=== PATIENT | male | born 1990 | race Caucasian/White ===

== ENCOUNTER 2016-04-08 12:31 | Emergency (ER) | payer OTHER ==
--- NOTE | 2016-04-08 13:57 | UC ---
Throat Pain/Nasal Aris HPI - HPI Summary HPI Summary: complaint of sore throat that started approx 1.5 days ago fever yesterday highest 103.7 today fever again 101.4 took some tylenol with some relief intermittent headaches slight cough, slightly runny nose difficult to swallow today no use of albuterol inhaler during this illness - History of Current Complaint Stated Complaint: FEVER AND SORE THROAT Hx Obtained From: Patient - Allergies/Home Medications Allergies/Adverse Reactions: Allergies Allergy/AdvReac Type Severity Reaction Status Date / Time Bee Venom Allergy Severe Swelling Verified 04/08/16 13:58 Of Face,Lips,& Throat Penicillins Allergy Unknown Unknown Verified 04/08/16 13:58 Reaction Details Sulfa Antibiotics Allergy Unknown Unknown Verified 04/08/16 13:58 Reaction Details Home Medications: Home Medications Acetaminophen TAB* [Tylenol TAB*] 1,000 mg PO ONCE PRN 04/08/16 [History Confirmed 04/08/16] Gabapentin CAP(*) [Neurontin 300 CAP(*)] 300 mg PO TID 04/08/16 [History Confirmed 04/08/16] cloNIDine TAB* [Catapres TAB*] 0.1 mg PO DAILY 04/08/16 [History Confirmed 04/08] traZODone TAB* [Desyrel TAB*] 50 mg PO BEDTIME 04/08/16 [History Confirmed 04/08] PMH/Surg Hx/FS Hx/Imm Hx Previously Healthy: Yes Endocrine History Of: Denies: Diabetes Respiratory History Of: Reports: Asthma - Surgical History Surgical History: Yes Surgery Procedure, Year, and Place: jaw wired 2013 - Family History Known Family History: Positive: Hypertension - mother, Diabetes - mother Negative: Cardiac Disease - Social History Occupation: Employed Full-time Lives: With Family Alcohol Use: Occasionally Substance Use Type: Marijuana Smoking Status (MU): Current Every Day Smoker Amount Used/How Often: 5-6 cigs daily Cessation Counseling: Patient Advised to Stop Review of Systems Constitutional: Fever Skin: Negative ENT: Sore Throat Respiratory: Cough Cardiovascular: Negative Gastrointestinal: Negative Genitourinary: Negative Motor: Negative Neurovascular: Negative Musculoskeletal: Negative Neurological: Negative Psychological: Negative All Other Systems Reviewed And Are Negative: Yes Physical Exam Triage Information Reviewed: Yes Appearance: No Pain Distress, Well-Nourished, Obese Vital Signs Reviewed: Yes Eyes: Positive: Conjunctiva Clear ENT: Positive: Pharyngeal erythema, Nasal congestion, Nasal drainage, TMs normal , Tonsillar swelling, Tonsillar exudate. Negative: TM red Neck: Positive: No Lymphadenopathy Respiratory: Positive: Lungs clear, Normal breath sounds, No respiratory distress Cardiovascular: Positive: RRR, No Murmur Abdomen Description: Positive: Nontender, Soft Bowel Sounds: Positive: Present Musculoskeletal: Positive: No Edema Neurological: Positive: Alert Psychological Exam: Normal Skin Exam: Normal Throat Pain/Nasal Course/Dx - Differential Dx/Diagnosis Differential Diagnosis/HQI/PQRI: Pharyngitis, Tonsillitis, URI Provider Diagnoses: strep throat Discharge - Discharge Plan Condition: Stable Disposition: HOME Prescriptions: Clarithromycin TAB* [Biaxin TAB*] 250 mg PO BID #20 tab Patient Education Materials: Strep Throat (ED) Forms: *Work Release Referrals: No Primary Care Phys,NOPCP [Primary Care Provider] - [facility] [Outside] Additional Instructions: Please take antibiotic as directed. Increase fluids and rest Take acetaminophen for fever or pain Please review your discharge instructions. If your symptoms do not improve please call your primary care provider or return to urgent care.
[2016-04-08 13:58] VITALS: BP 146/82
== END 2016-04-08 14:40 | disposition home or self-care (01) ==
LOC: UCEAST 12:31
DX: J02.0 Streptococcal pharyngitis (principal); E66.9 Obesity, unspecified; F12.90 Cannabis use, unspecified, uncomplicated; F17.210 Nicotine dependence, cigarettes, uncomplicated; Z88.0 Allergy status to penicillin; Z88.2 Allergy status to sulfonamides
CPT/HCPCS: 99212; G0463

== ENCOUNTER 2016-04-12 11:18 | Emergency (ER) | payer OTHER ==
[2016-04-12 12:53] VITALS: BP 113/74
--- NOTE | 2016-04-12 13:06 | UC ---
Throat Pain/Nasal Aris HPI - HPI Summary HPI Summary: 26 M w/ PMH of asthma presents with increase in sore throat pain. Was diagnosed with strept on at and given clarithromycin. He says cant eat or drink because of pain and swelling. Had a fever 101 yesterday. He admits to some chest tightness and SOB but denies any chest pain. She feels that there is swelling to left side of face. He says that starting today has been unable to open jaw all the way. Also starting feeling a sharp pain in his jaw. His voice has been raspier. He has been taking tyenlol for his pain. - History of Current Complaint Chief Complaint: UCGeneralIllness Stated Complaint: SORE THROAT Time Seen by Provider: 04/12/16 13:01 - Allergies/Home Medications Allergies/Adverse Reactions: Allergies Allergy/AdvReac Type Severity Reaction Status Date / Time Bee Venom Allergy Severe Swelling Verified 04/08/16 13:58 Of Face,Lips,& Throat Penicillins Allergy Unknown Unknown Verified 04/08/16 13:58 Reaction Details Sulfa Antibiotics Allergy Unknown Unknown Verified 04/08/16 13:58 Reaction Details PMH/Surg Hx/FS Hx/Imm Hx Endocrine History Of: Denies: Diabetes Respiratory History Of: Reports: Asthma - Surgical History Surgical History: Yes Surgery Procedure, Year, and Place: jaw wired 2013 - Family History Known Family History: Positive: Hypertension - mother, Diabetes - mother Negative: Cardiac Disease - Social History Alcohol Use: Occasionally Substance Use Type: Marijuana Smoking Status (MU): Current Every Day Smoker Amount Used/How Often: 5-6 cigs daily Have You Smoked in the Last Year: No Review of Systems Constitutional: Fever Eyes: Negative ENT: Sore Throat Respiratory: Shortness Of Breath Cardiovascular: Negative Gastrointestinal: Negative All Other Systems Reviewed And Are Negative: Yes Physical Exam Triage Information Reviewed: Yes Appearance: Ill-Appearing Vital Signs: Initial Vital Signs Temp 99.3 F 04/12/16 12:46 Pulse 120 04/12/16 12:46 Resp 20 04/12/16 12:46 BP 113/74 04/12/16 12:46 Pulse Ox 95 04/12/16 12:46 Vital Signs Reviewed: Yes Eyes: Positive: Conjunctiva Clear ENT: Positive: TMs normal, Tonsillar swelling, Tonsillar exudate - thrush like, Trismus, Other: - uvula midline but soft palate not symmetrical on left side,. Negative: Muffled/hoarse voice Neck: Positive: Other: - tenderness to left side of jaw line Respiratory: Positive: Lungs clear, Normal breath sounds Cardiovascular: Positive: RRR Throat Pain/Nasal Course/Dx - Course Course Of Treatment: 26 M presents with sore throat for 5 days. positive for strept and started on clarithromycin 5 days ago, today complaining of trismus and worsening pain, on exam uvula midline but soft palate asymmetrically on left side, pain located on left side, evidence of thrush like infection on tonsils also, respiration unlabored and is not drooling, patient seen by dr ayers and agrees needs transfer, discussed with patient due to failing outpt therapy and potential for peritonsillar vs retropharyngeal abscess will need to transfer to ED for further workup, patient would like to be transferred by ambulance, currently managing airway and secretions appropriately - Differential Dx/Diagnosis Differential Diagnosis/HQI/PQRI: Peritonsillar Abscess, Pharyngitis, Other - retrophaygneal abscess Provider Diagnoses: strept throat Discharge - Discharge Plan Condition: Good Disposition: TRANS HIGHER LVL OF CARE FAC Referrals: No Primary Care Phys,NOPCP [Primary Care Provider] -
== END 2016-04-12 13:53 | disposition short-term general hospital (02) ==
LOC: UCEAST 11:18
DX: J02.0 Streptococcal pharyngitis (principal); F12.90 Cannabis use, unspecified, uncomplicated; F17.210 Nicotine dependence, cigarettes, uncomplicated; Z88.0 Allergy status to penicillin; Z88.2 Allergy status to sulfonamides

== ENCOUNTER 2016-04-12 14:07 | Emergency (ER) | payer OTHER ==
[2016-04-12] MEDS ORDERED: NS 0.9% 1000 ML* 1,000 ML IV ONE (15:00)
[2016-04-12] MEDS ORDERED: Ketorolac INJ* 30 MG/ML 1 ML VIAL IV PUSH ONE (15:00)
[2016-04-12 15:06] LABS: Hematocrit 46 % (42-52); Hemoglobin 15.7 g/dl (14.0-18.0); Mean Corpuscular HGB Conc 35 g/dl (31-36); Mean Corpuscular Hemoglobin 30 pg (27-31); Mean Corpuscular Volume 88 fL (80-94); Mean Platelet Volume 6 um3 (7.4-10.4); Red Blood Count 5.19 10^6/ul (4.0-5.4); Red Cell Distribution Width 13 % (10.5-15); White Blood Count 15.1 10^3/ul (3.5-10.8)
[2016-04-12 15:17] LABS: Albumin 3.9 g/dL (3.2-5.2); BUN/Creatinine Ratio 13.2 (8-20); Calcium 9.5 mg/dL (8.6-10.3); EGFR African American 184.2 (>60); EGFR Non-African American 143.3 (>60); Globulin 3.9 g/dL (2-4); Potassium 3.6 mmol/L (3.5-5.0); Total Bilirubin 0.6 mg/dL (0.2-1.0); Total Protein 7.8 g/dL (6.4-8.9)
[2016-04-12] MEDS ORDERED: Iohexol 300* (CONTRAST) 10 ML SDV IV ONE (15:21)
--- NOTE | 2016-04-12 16:01 | RAD ---
Indication: Left-sided palate edema with erythema. CT of the facial bones was obtained in the axial plane after intravenous injection of Administered 74.9 ml of OMNIPAQUE 300 mgi/ml according to hospital protocol. Left-sided peritonsillar abscess is noted with fluid component measuring approximately 14 mm. Soft tissue edema is noted. Soft tissue edema is noted. The pterygoid muscles and masseter muscles are otherwise unremarkable. Mucosal thickening of the maxillary sinuses is noted consistent with chronic sinusitis. No fractures noted. IMPRESSION: PROMINENT PERITONSILLAR SOFT TISSUE AND EDEMA ESPECIALLY ON THE LEFT WITH A VAGUE LOW DENSITY IN THE LEFT PERITONSILLAR AREA. FINDINGS ARE CONSISTENT WITH A SMALL PERITONSILLAR ABSCESS WITH A FLUID COMPONENT MEASURING APPROXIMATELY 14 MM.
[2016-04-12] MEDS ORDERED: Dexamethasone IV* 4 MG/ML 5 ML VIAL (20 MG) IVPB ONE (17:23)
[2016-04-12] MEDS ORDERED: metroNIDAZOLE IV 500 MG/100ML* 500 MG/100 ML BAG IVPB ONE (17:41)
[2016-04-12] MEDS ORDERED: Penicillin G Potassium IV* 4,000,000 UNITS in NS 0.9% 100 ML* 100 ML IVPB ONE (17:43)
[2016-04-12] MEDS ORDERED: Nicotine PATCH 14 MG/24 HR* PATCH TRANSDERM ONE (17:49)
--- NOTE | 2016-04-12 18:19 | ED ---
Throat Pain/Nasal Congestion - HPI Summary HPI Summary: Pt here w/ ST, dysphagia and difficulty handling secretions. ST started 6.5 days ago. Was seen 04/08/2016 and dx'd w/ strep pharyngitis. Pt has PCN listed on his allergy list but further review, he admits this is on there because it "doesn't work", not because he's ever had an allergic reaction. He does however confirm his allergic reaction to sulfa antibiotics. He was rx'd and has been taking clarithromycin over the past 5 days w/o relief of pain/swelling. Fever is not quite as high ( was initially 103F at highest - now around 101F). Pt has pain radiating into his jaw and ear on the left - neck is sore as well here. Rt side of head/face are w/o pain. He has been drinking ice water only w/ some relief - gingerale made pain worse (carbonation). Ibuprofen is not touching pain. Has been out of work as he can't take the pain. Had asthma as a child. Does not use albuterol unless he gets sick with a URI. Denies trouble breathing, SOB, wheezing with current illness. No N/V/D. H/o periorbital cellulitis annually. No PCP. Smokes 1/2PPD. - History of Current Complaint Chief Complaint: EDThroatPain Time Seen by Provider: 04/12/16 14:27 Hx Obtained From: Patient, Family/[employer] - mom - Allergies/Home Medications Allergies/Adverse Reactions: Allergies Allergy/AdvReac Type Severity Reaction Status Date / Time Bee Venom Allergy Severe Swelling Verified 04/08/16 13:58 Of Face,Lips,& Throat Penicillins Allergy Unknown Unknown Verified 04/08/16 13:58 Reaction Details Sulfa Antibiotics Allergy Unknown Unknown Verified 04/08/16 13:58 Reaction Details PMH/Surg Hx/FS Hx/Imm Hx Previously Healthy: Yes Endocrine/Hematology History: Denies: Hx Diabetes, Hx Thyroid Disease, Autoimmune Disease Cardiovascular History: Denies: Hx Hypertension Respiratory History: Reports: Hx Asthma History: Denies: Hx Renal Disease - Surgical History Surgery Procedure, Year, and Place: jaw wired 2013 Infectious Disease History: No Infectious Disease History: Denies: Hx Clostridium Difficile, Hx Hepatitis, Hx Human Immunodeficiency Virus (HIV), Hx of Known/Suspected MRSA, Hx Shingles, Hx Tuberculosis, Hx Known/ Suspected VRE, Hx Known/Suspected VRSA, History Other Infectious Disease, Traveled Outside the [place] in Last 30 Days - Family History Known Family History: Positive: Hypertension - mother, Diabetes - mother Negative: Cardiac Disease - Social History Occupation: Employed Full-time Lives: With Family Alcohol Use: Occasionally Substance Use Type: Reports: Marijuana Smoking Status (MU): Current Every Day Smoker Amount Used/How Often: 10 cigs per day Have You Smoked in the Last Year: No Cessation Counseling: Patient Advised to Stop Review of Systems Positive: Fever - see HPI Eyes: Negative ENT: Other - see HPI Negative: Chest Pain Negative: Shortness Of Breath, Cough Negative: Abdominal Pain, Vomiting, Diarrhea, Nausea Positive: no symptoms reported Musculoskeletal: Other - jaw hurts to open Negative: Rash Negative: Headache, Weakness, Paresthesia, Numbness Psychological: Normal All Other Systems Reviewed And Are Negative: Yes Physical Exam Triage Information Reviewed: Yes Vital Signs On Initial Exam: Initial Vitals Temp Pulse Resp BP Pulse Ox 97 F 94 16 137/83 96 04/12/16 14:21 04/12/16 14:21 04/12/16 14:21 04/12/16 14:21 04/12/16 14:21 Vital Signs Reviewed: Yes Appearance: Positive: Well-Appearing, Pain Distress, Obese Skin: Positive: Warm, Dry - no facial erythema Head/Face: Positive: Normal Head/Face Inspection - sinuses NTTP Eyes: Positive: Normal, EOMI, CARLI, Conjunctiva Clear. Negative: Conjunctiva Inflammed, Discharge ENT: Positive: Hearing grossly normal, TMs normal, Tonsillar swelling - tonsils +3-4 and palate are beefy red and grossly edematous - no shakeel exudate, pustule on oral mucosa exam, Muffled/hoarse voice - mild - handling secretions. Negative: Nasal congestion, Nasal drainage Neck: Positive: Supple, Tenderness @ - Rt submandibular and cc Ln's Respiratory/Lung Sounds: Positive: Clear to Auscultation, Breath Sounds Present. Negative: Rales, Rhonchi, Stridor, Wheezes Cardiovascular: Positive: Normal, RRR, S1, S2 Abdomen Description: Positive: Nontender, Soft Bowel Sounds: Positive: Present Musculoskeletal: Positive: Normal, Strength/ROM Intact Neurological: Positive: Normal, Sensory/Motor Intact, Alert, Oriented to Person Place, Time, CN Intact II-III Psychiatric: Positive: Normal - concerned - Krunal Coma Scale Coma Scale Total: 15 Diagnostics - Vital Signs Vital Signs Temp Pulse Resp BP Pulse Ox 04/12/16 17:49 99.2 F 81 16 140/68 96 04/12/16 14:21 97 F 94 16 137/83 96 - Laboratory Lab Results: Lab Results 04/12/16 04/12/16 04/12/16 Range/Units 13:40 14:30 14:30 WBC 15.1 H (3.5-10.8) 10^3/ul RBC 5.19 (4.0-5.4) 10^6/ul Hgb 15.7 (14.0-18.0) g/dl Hct 46 (42-52) % MCV 88 (80-94) fL MCH 30 (27-31) pg MCHC 35 (31-36) g/dl RDW 13 (10.5-15) % Plt Count 237 (150-450) 10^3/ul MPV 6 L (7.4-10.4) um3 Neut % (Auto) 78.1 (38-83) % Lymph % (Auto) 10.6 L (25-47) % Avery % (Auto) 8.6 (1-9) % Eos % (Auto) 2.3 (0-6) % Baso % (Auto) 0.4 (0-2) % Absolute Neuts (auto) 11.8 H (1.5-7.7) 10^3/ul Absolute Lymphs (auto) 1.6 (1.0-4.8) 10^3/ul Absolute Monos (auto) 1.3 H (0-0.8) 10^3/ul Absolute Eos (auto) 0.4 (0-0.6) 10^3/ul Absolute Basos (auto) 0.1 (0-0.2) 10^3/ul Absolute Nucleated RBC 0.02 10^3/ul Nucleated RBC % 0.1 Sodium 134 (133-145) mmol/L Potassium 3.6 (3.5-5.0) mmol/L Chloride 100 L (101-111) mmol/L Carbon Dioxide 27 (22-32) mmol/L Anion Gap 7 (2-11) mmol/L BUN 9 (6-24) mg/dL Creatinine 0.68 (0.67-1.17) mg/dL Est GFR ( Amer) 184.2 (>60) Est GFR (Non-Af Amer) 143.3 (>60) BUN/Creatinine Ratio 13.2 (8-20) Glucose 104 H (70-100) mg/dL Lactic Acid 0.7 (0.5-2.0) mmol/L Calcium 9.5 (8.6-10.3) mg/dL Total Bilirubin 0.60 (0.2-1.0) mg/dL AST 12 L (13-39) U/L ALT 13 (7-52) U/L Alkaline Phosphatase 63 (34-104) U/L C-React Prot High Sens 135.02 mg/L Total Protein 7.8 (6.4-8.9) g/dL Albumin 3.9 (3.2-5.2) g/dL Globulin 3.9 (2-4) g/dL Albumin/Globulin Ratio 1.0 (1-3) Result Diagrams: 04/12/16 13:40 04/12/16 14:30 Lab Statement: Any lab studies that have been ordered have been reviewed, and results considered in the medical decision making process. Re-Evaluation - Re-Evaluation First Eval Change: Improved - saline improved oral secretions but toradol has not helped pain EENT Course/Dx - Course Course Of Treatment: Pt w/ 6.5 day h/o ST, progressively worsening despite NSAID 's and clarithromycin anbx x [address] reveals peritonsillar edema + Left 14mm peritonsillar abscess. Discussed risk/benefits of transfer with pt and pt's mom - they agree to transfer. Pt transfer papework initiated at 18:02pm, directly after speaking with Dr. Torres at [facility]. - Diagnoses Provider Diagnoses: Peritonsillar abscess - Provider Notifications Discussed Care of Patient with: Dr. Milner - discussed care and transfer options. Dr. Torres - ED physician - [facility] -agrees to accept pt Discharge - Discharge Plan Condition: Stable Disposition: TRANS HIGHER LVL OF CARE FAC
[2016-04-12 20:27] VITALS: BP 147/77
== END 2016-04-12 20:55 | disposition short-term general hospital (02) ==
LOC: ED 14:07
DX: J36 Peritonsillar abscess (principal); F17.210 Nicotine dependence, cigarettes, uncomplicated; Z88.2 Allergy status to sulfonamides
CPT/HCPCS: 36415; 70487; 80053; 83605; 85025; 86141; 96360; 96374; 96375; 99283; A9270-GY; J1100; J1885; J2540; J3490; Q9967

== ENCOUNTER 2016-04-17 13:46 | Emergency (ER) | payer OTHER ==
[2016-04-17 16:02] VITALS: BP 132/100
--- NOTE | 2016-04-17 22:04 | UC ---
HPI Wound/Suture Re-check - HPI Summary HPI Summary: 26 male presents to be re-checked after having peritonsillar abscess surgery. Patient had surgery on Wednesday06/10/16 and states he is doing much better. He is still taking the prednisone and augmentin as prescribed. Has still been experiencing pain with eating and swallowing, other gonzalez doing well. Mother wanted to have the tonsil showing a white patch checked out. Denies any trouble breathing, chest pain, fever/chills, and severe sore throat. Still healing from procedure. 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 Has been sticking to eating milkshakes and jello. - History Of Current Complaint Chief Complaint: UCGeneralIllness Stated Complaint: TONSIL SURG F/U Time Seen by Provider: 04/17/16 16:52 Hx Obtained From: Patient Onset/Duration: Sudden Onset Severity: Mild Pain Intensity: 5 Pain Scale Used: 0-10 Numeric Procedure Type: peritonsillar abscess drained Surgery Date: 04/12/16 - Allergies/Home Medications Allergies/Adverse Reactions: Allergies Allergy/AdvReac Type Severity Reaction Status Date / Time Bee Venom Allergy Severe Swelling Verified 04/17/16 16:01 Of Face,Lips,& Throat Sulfa Antibiotics Allergy Unknown Unknown Verified 04/17/16 16:01 Reaction Details Home Medications: Home Medications Acetaminophen 1,000 mg PO PRN 04/17/16 [History] Amoxicillin/Clavulanate TAB* [Augmentin TAB 500 mg*] 500 mg PO BID 04/17/16 [ History Confirmed 04/17/16] HYDROcodone/ACETAMIN 5-325 MG* [Cutler 5-325 TAB*] 1 tab PO PRN 04/17/16 [History ] Methylprednisolone [Medrol Dosepak 4 MG*] 0 mg PO .SEE CALLY INSTRUCTION 04/17/16 [History Confirmed 04/17/16] PMH/Surg Hx/FS Hx/Imm Hx Previously Healthy: Yes Endocrine History Of: Denies: Diabetes, Thyroid Disease Cardiovascular History Of: Denies: Hypertension Respiratory History Of: Reports: Asthma GI/ History Of: Denies: Renal Disease - Surgical History Surgical History: Yes Surgery Procedure, Year, and Place: jaw wired 2013, TONSILLAR ABSCESS DRAINED - Family History Known Family History: Positive: Hypertension - mother, Diabetes - mother Negative: Cardiac Disease - Social History Alcohol Use: Occasionally Substance Use Type: None Smoking Status (MU): Current Every Day Smoker Amount Used/How Often: 4-5 CIG/DAY Have You Smoked in the Last Year: No Review of Systems Constitutional: Negative Skin: Negative Eyes: Negative ENT: Sore Throat - mildly sore upon swallowing due to recent procedure, nothing like before surgery. Respiratory: Negative Cardiovascular: Negative Gastrointestinal: Negative Genitourinary: Negative Motor: Negative Neurovascular: Negative Musculoskeletal: Negative Neurological: Negative Psychological: Negative All Other Systems Reviewed And Are Negative: Yes Physical Exam Triage Information Reviewed: Yes Appearance: Well-Appearing, No Pain Distress, Well-Nourished Vital Signs: Initial Vital Signs Temp 98.7 F 04/17/16 15:56 Pulse 75 04/17/16 15:56 Resp 16 04/17/16 15:56 BP 132/100 04/17/16 15:56 Pulse Ox 100 04/17/16 15:56 Vital Signs Reviewed: Yes Eye Exam: Normal Eyes: Positive: Conjunctiva Clear ENT: Positive: Hearing grossly normal, Pharynx normal - minimal redness, TMs normal, Tonsillar exudate - small white exudative patch on left tonsil noted. appears to be in healing process. Negative: Nasal congestion, Nasal drainage, Tonsillar swelling Dental Exam: Normal Dental: Negative: Abscess @ Neck: Positive: Supple, Nontender, No Lymphadenopathy Respiratory: Positive: Chest non-tender, Lungs clear, Normal breath sounds, No respiratory distress Cardiovascular: Positive: RRR, No Murmur, Pulses Normal Musculoskeletal Exam: Normal Neurological Exam: Normal Psychological Exam: Normal Skin Exam: Normal Course/Dx - Course Course Of Treatment: Patient was told to continue taking medications as prescribed. Also encouraged to gargle with salt water. Given ibuprofen to help with pain and inflammation. Given work note for 2 more days off. Aware of worsening signs and symptoms. - Differential Dx - Laceration/Wound Differential Diagnoses: Abscess, Cellulitis, Healing Wound, Other Provider Diagnoses: healing wound, re-check after removal of peritonsillar abscess procedure Discharge - Discharge Plan Condition: Good Disposition: HOME Prescriptions: Ibuprofen TAB* [Motrin TAB* 600 MG] 600 mg PO Q8H PRN #10 tab PRN Reason: Pain Patient Education Materials: Pharyngitis (ED) Forms: *Work Release Referrals: No Primary Care Phys,NOPCP [Primary Care Provider] - Additional Instructions: If symptoms worsen or additional symptoms occur please seek medical attention promptly. Take prescribed Ibuprofen as needed for pain, take with food. Continue taking prednisone and augmentin antibiotic until finished. Continue salt water gargles. Use pain as your guide for eating certain foods. Drink plenty of water and eat foods containing live cultures (probiotics).
== END 2016-04-17 17:14 | disposition home or self-care (01) ==
LOC: UCEAST 13:46
DX: R07.0 Pain in throat (principal); Z98.890 Other specified postprocedural states; Z88.2 Allergy status to sulfonamides; F17.210 Nicotine dependence, cigarettes, uncomplicated
CPT/HCPCS: 99211; G0463

== ENCOUNTER 2017-04-18 13:57 | Emergency (ER) | payer OTHER | END 2017-04-18 15:30 | disposition left against medical advice (07) | LOC: UCEAST 13:57 | DX: R09.89 Other specified symptoms and signs involving the circulatory and respiratory systems (principal); R05 Cough; Z53.21 Procedure and treatment not carried out due to patient leaving prior to being seen by health care provider ==

== ENCOUNTER 2017-04-19 14:51 | Emergency (ER) | payer OTHER ==
[2017-04-19 17:06] VITALS: BP 129/86
--- NOTE | 2017-04-19 17:27 | UC ---
FLU HPI - HPI Summary HPI Summary: Patient presents to the with CC of fevers, chills, cough and congestion. Denies N/V/C/D, ONOFRE. He endorses symptoms x 2 days. No sick contacts. Otherwise healthy. Denies taking any medication. Cough is most bothersome and worse at night. - History of Current Complaint Chief Complaint: UCGeneralIllness Stated Complaint: CONGESTED, FEVER, SORE THROAT Time Seen by Provider: 04/19/17 17:09 Hx Obtained From: Patient Onset/Duration: Gradual Onset Severity Currently: Mild Severity Initially: Mild Pain Intensity: 7 Pain Scale Used: 0-10 Numeric Associated Signs & Symptoms: Positive: Fever, T Max, Cough - Allergy/Home Medications Allergies/Adverse Reactions: Allergies Allergy/AdvReac Type Severity Reaction Status Date / Time Sulfa (Sulfonamide Allergy Unknown See Comment Verified 04/19/17 16:56 Antibiotics) bee venom protein (honey bee) Allergy Hives Verified 04/19/17 16:56 PMH/Surg Hx/FS Hx/Imm Hx Previously Healthy: Yes - Surgical History Surgical History: Yes Surgery Procedure, Year, and Place: jaw wired 2013, TONSILLAR ABSCESS DRAINED - Family History Known Family History: Positive: Hypertension - mother, Diabetes - mother Negative: Cardiac Disease - Social History Occupation: Employed Full-time Lives: With Family Alcohol Use: Occasionally Substance Use Type: None Smoking Status (MU): Current Every Day Smoker Amount Used/How Often: 4-5 CIG/DAY Have You Smoked in the Last Year: No Review of Systems Constitutional: Fatigue Skin: Negative ENT: Negative Respiratory: Cough Cardiovascular: Negative Motor: Negative Neurovascular: Negative Musculoskeletal: Negative Neurological: Negative Is Patient Immunocompromised?: No All Other Systems Reviewed And Are Negative: Yes Physical Exam Triage Information Reviewed: Yes Appearance: Well-Appearing, Well-Nourished Vital Signs: Initial Vital Signs Temp 98.5 F 04/19/17 16:58 Pulse 66 04/19/17 16:58 Resp 16 04/19/17 16:58 BP 129/86 04/19/17 16:58 Pulse Ox 100 04/19/17 16:58 Vital Signs Reviewed: Yes Eye Exam: Normal Eyes: Positive: Conjunctiva Clear ENT: Positive: Pharynx normal, TMs normal Dental Exam: Normal Respiratory Exam: Normal Respiratory: Positive: Chest non-tender, Lungs clear Cardiovascular Exam: Normal Cardiovascular: Positive: RRR Neurological Exam: Normal Neurological: Positive: Alert Psychological: Positive: Normal Response To Family Skin Exam: Normal Flu Course/Dx - Course Course Of Treatment: Evaluated for flu like illness. Flu swab obtained and negative. Endorses cough. Tessalon given for cough and note given. - Differential Dx/Diagnosis Differential Diagnosis/HQI/PQRI: Influenza, Upper Respiratory Infection Provider Diagnoses: cough Discharge - Discharge Plan Condition: Stable Disposition: HOME Prescriptions: Benzonatate CAP* [Tessalon CAP*] 100 mg PO TID #21 cap Patient Education Materials: Upper Respiratory Infection (ED) Forms: *Gen. Provider Communication Referrals: No Primary Care Phys,NOPCP [Primary Care Provider] -
== END 2017-04-19 17:57 | disposition home or self-care (01) ==
LOC: UCEAST 14:51
DX: R05 Cough (principal); R50.9 Fever, unspecified; R53.83 Other fatigue; F17.200 Nicotine dependence, unspecified, uncomplicated
CPT/HCPCS: 87502; 99212; G0463

== ENCOUNTER → 2018-07-04 15:10 | Emergency (ER) | payer OTHER ==
[~2018-07-04 15:10] MED LIST: Clindamycin 600 MG/D5W BAG(*) 600 MG/50 ML BAG IV ONE; Dexamethasone IV* 4 MG/ML 1 ML (4 MG) IV SLOW PU ONE; Ketorolac INJ* 30 MG/ML 1 ML VIAL IV PUSH ONE; Lidocaine 2% VISCOUS* 15 ML UDC PO ONE; NS 0.9% 1000 ML** 1,000 ML IV ONE
[2018-07-04 15:24] VITALS: BP 163/83
--- NOTE | 2018-07-04 15:28 | ED ---
Throat Pain/Nasal Congestion - HPI Summary HPI Summary: 28-year-old male presents with sore throat for the past 5 days. He states his sore throat has been getting worse. He is able to swallow water as needed. He states it is very painful. He's been having a cough. He admits to nasal congestion. Has history of strep and peritonsillar abscess. He admits to ear pain. He has been having fevers. Denies any chest pain. No abdominal pain nausea or vomiting. He states when coughing he has had coughed up some sputum that is blood tingling. He states ibuprofen the pain was not working. Has a history of asthma. - History of Current Complaint Chief Complaint: EDThroatPain Time Seen by Provider: 07/04/18 15:11 - Allergies/Home Medications Allergies/Adverse Reactions: Allergies Allergy/AdvReac Type Severity Reaction Status Date / Time Sulfa (Sulfonamide Allergy Unknown See Comment Verified 07/04/18 15:32 Antibiotics) bee venom protein (honey bee) Allergy Hives Verified 07/04/18 15:32 PMH/Surg Hx/FS Hx/Imm Hx Endocrine/Hematology History: Denies: Hx Diabetes, Hx Thyroid Disease Cardiovascular History: Denies: Hx Hypertension Respiratory History: Reports: Hx Asthma History: Denies: Hx Renal Disease - Surgical History Surgery Procedure, Year, and Place: jaw wired 2013, TONSILLAR ABSCESS DRAINED Infectious Disease History: No Infectious Disease History: Reports: Hx Shingles Denies: Hx Clostridium Difficile, Hx Hepatitis, Hx Human Immunodeficiency Virus (HIV), Hx of Known/Suspected MRSA, Hx Tuberculosis, Hx Known/Suspected VRE , Hx Known/Suspected VRSA, History Other Infectious Disease, Traveled Outside the [place] in Last 30 Days - Family History Known Family History: Positive: Hypertension - mother, Diabetes - mother Negative: Cardiac Disease - Social History Alcohol Use: Occasionally Substance Use Type: Reports: None Smoking Status (MU): Current Every Day Smoker Amount Used/How Often: 4-5 CIG/DAY Have You Smoked in the Last Year: No Review of Systems Positive: Fever Positive: Sore Throat, Ear Ache, Nasal Discharge Negative: Chest Pain Positive: Shortness Of Breath, Cough Negative: Abdominal Pain All Other Systems Reviewed And Are Negative: Yes Physical Exam Triage Information Reviewed: Yes Vital Signs On Initial Exam: Initial Vitals Temp Pulse Resp BP Pulse Ox 98.3 F 109 17 163/83 98 07/04/18 15:17 07/04/18 15:17 07/04/18 15:17 07/04/18 15:17 07/04/18 15:17 Vital Signs Reviewed: Yes Appearance: Positive: Well-Appearing Skin: Positive: Warm, Dry Head/Face: Positive: Normal Head/Face Inspection Eyes: Positive: Normal, EOMI, CARLI, Conjunctiva Clear ENT: Positive: Pharyngeal erythema, TMs normal, Tonsillar swelling - +4, Tonsillar exudate, Uvula midline, Other - soft palate symmetric. Negative: Trismus, Muffled voice Neck: Positive: Supple, Tenderness @ - cervical, Enlarged Nodes @ - cervical Respiratory/Lung Sounds: Positive: Clear to Auscultation, Breath Sounds Present Cardiovascular: Positive: Normal, RRR Abdomen Description: Positive: Nontender, Soft Bowel Sounds: Positive: Present Musculoskeletal: Positive: Normal Neurological: Positive: Normal Psychiatric: Positive: Normal Diagnostics - Vital Signs Vital Signs Temp Pulse Resp BP Pulse Ox 07/04/18 15:17 98.3 F 109 17 163/83 98 - Laboratory Result Diagrams: 07/04/18 15:53 07/04/18 15:53 Lab Statement: Any lab studies that have been ordered have been reviewed, and results considered in the medical decision making process. - Radiology chest Radiology Interpretation Completed By: Radiologist Summary of Radiographic Findings: no active disease Re-Evaluation - Re-Evaluation First Eval Re-Evaluation Time: 16:16 Change: Improved Comment: feeling better with fluids Second Eval Re-Evaluation Time: 16:51 Change: Improved Comment: feeling better after steriods EENT Course/Dx - Course Course Of Treatment: 28-year-old male presents with sore throat for the past 5 days. He states his sore throat has been getting worse. He is able to swallow water as needed. He states it is very painful. He's been having a cough. He admits to nasal congestion. Has history of strep and peritonsillar abscess. He admits to ear pain. He has been having fevers. Denies any chest pain. No abdominal pain nausea or vomiting. He states when coughing he has had coughed up some sputum that is blood tingling. He states ibuprofen the pain was not working. Has a history of asthma. On exam pharynx erythematous. Tonsils +4. Uvula midline. Soft palate symmetric. No trismus. Voice is not muffled. Sinus congestion noted. strept is positive. chest xray normal. wbc 15. monospot neg. gave fluids, toradol, decadron and lidocaine and feeling better. gave clindmycin here. will have take augmentin at home. with history of peristonsillar abscess will have follow up with ENT. will also have continue decadron. patient understand and agrees with plan. - Differential Diagnoses Differential Diagnoses: Pharyngitis, Tonsilitis, URI/Bronchitis - Diagnoses Provider Diagnoses: Streptococcal tonsillitis Discharge - Sign-Out/Discharge Documenting (check all that apply): Patient Departure Patient Received Moderate/Deep Sedation with Procedure: No - Discharge Plan Condition: Good Disposition: HOME Prescriptions: Amoxicillin/Clavulanate TAB* [Augmentin TAB 500 mg*] 500 mg PO BID #19 tab Dexamethasone TAB* [Decadron TAB*] 4 mg PO DAILY #4 tab Magic Mouth Was-HANNAH/MAAL/LIDO* 5 ml SWISH SPIT QID #100 ml Patient Education Materials: Strep Throat (ED) Referrals: Piyush Forrester MD [Medical Doctor] - [facility] [place] [facility] [Outside] Additional Instructions: Magic mouthwash 5ml swish and spit can use 4x a day take antibiotic twice a day for 10 days Take steroid once a day for 5 days Take Tylenol or ibuprofen for pain every 6 hours Use saline spray in nose as much as needed for nasal congestion Can gargle salt water Can use cough drops or products such as cloraseptic spray Establish care with primary care physician Follow up with ENT Return to ED if develop fever does not respond to Tylenol or ibuprofen, inability to swallow, or difficulty breathing or any new or worsening symptoms - Billing Disposition and Condition Condition: GOOD Disposition: Home
[2018-07-04 16:04] LABS: ABS Basophils 0 10^3/ul (0-0.2); ABS Eosinophils 0.3 10^3/ul (0-0.6); ABS Lymphocytes 1.3 10^3/ul (1.0-4.8); ABS Monocytes 1.3 10^3/ul (0-0.8); ABS Neutrophils 12.3 10^3/ul (1.5-7.7); ABS Nucleated RBC 0 10^3/ul; Eosinophil % 1.7 %; Hematocrit 45 % (36-46); Hemoglobin 15.4 g/dL (14.0-18.0); Lymphocyte % 8.4 %; Mean Corpuscular HGB Conc 35 g/dL (31-36); Mean Corpuscular Hemoglobin 31 pg (27-31); Mean Corpuscular Volume 89 fL (80-94); Mean Platelet Volume 6.1 fL (7.4-10.4); Nucleated Red Blood Cells % 0; Platelet Count 229 10^3/uL (150-450); Red Cell Distribution Width 13 % (10.5-15); White Blood Count 15.1 10^3/uL (3.5-10.8)
[2018-07-04 16:23] LABS: Albumin 4.1 g/dL (3.2-5.2); BUN/Creatinine Ratio 18.1 (8-20); Calcium 9.2 mg/dL (8.6-10.3); EGFR African American 135.5 (>60); Globulin 4.2 g/dL (2-4); Potassium 3.5 mmol/L (3.5-5.0); Total Bilirubin 0.9 mg/dL (0.2-1.0); Total Protein 8.3 g/dL (6.4-8.9)
[2018-07-04 16:58] LABS: Rapid Strep Molecular POSITIVE (Negative)
[2018-07-05 13:57] LABS: EBV Capsid Ag IgG Ab Negative (Negative); EBV Capsid Ag IgM Ab Positive (Negative); Epstein-Barr Nuclear Antigen Positive (Negative)
== END | disposition home or self-care (01) ==
LOC: ED 15:10
DX: J03.00 Acute streptococcal tonsillitis, unspecified (principal); J45.909 Unspecified asthma, uncomplicated; F17.210 Nicotine dependence, cigarettes, uncomplicated
CPT/HCPCS: 36415; 71046; 80053; 85025; 86308; 86664; 86665; 87651; 96361; 96374; 96375; 99283; J1100; J1885

== ENCOUNTER 2018-10-19 08:42 | Emergency (ER) | payer OTHER ==
[2018-10-19 09:03] VITALS: BP 115/84
--- NOTE | 2018-10-19 09:56 | UC ---
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 ABOUT 4 DAYS AGO HE STARTED WITH LOW BACK PAIN WHICH SEEMS TO BE GETTING WORSE. TODAY HE HAS SOME INTERMITTENT TINGLING SENSATION IN HIS LEFT LATERAL THIGH. NO SADDLE ANESTHESIA. NO LOSS OF BOWEL OR BLADDER CONTROL. - History of Current Complaint Chief Complaint: UCBackPain Stated Complaint: BACK INJURY Time Seen by Provider: 10/19/18 08:59 Hx Obtained From: Patient Onset/Duration: Gradual Onset, Lasting Days, Still Present Timing: Constant Severity Initially: Moderate Severity Currently: Moderate Pain Intensity: 2 Pain Scale Used: 0-10 Numeric Character: Sharp Aggravating Factor(s): Movement Alleviating Factor(s): Rest Associated Signs And Symptoms: Positive: Tingling - Allergies/Home Medications Allergies/Adverse Reactions: Allergies Allergy/AdvReac Type Severity Reaction Status Date / Time Sulfa (Sulfonamide Allergy Unknown See Comment Verified 10/19/18 09:01 Antibiotics) bee venom protein (honey bee) Allergy Hives Verified 10/19/18 09:01 Home Medications: Home Medications Albuterol 2.5MG/3ML (0.083%)* [Ventolin 2.5 MG/3 ML NEB.JAG*] 1 unit INH DAILY PRN 10/19/18 [History Confirmed 10/19/18] PMH/Surg Hx/FS Hx/Imm Hx Respiratory History: Asthma - Surgical History Surgical History: Yes Surgery Procedure, Year, and Place: jaw wired 2013, TONSILLAR ABSCESS DRAINED - Family History Known Family History: Positive: Hypertension - mother, Diabetes - mother Negative: Cardiac Disease - Social History Alcohol Use: Occasionally Substance Use Type: None Smoking Status (MU): Current Every Day Smoker Amount Used/How Often: 1/2ppd Have You Smoked in the Last Year: No Household Exposure Type: Cigarettes Review of Systems All Other Systems Reviewed And Are Negative: Yes Constitutional: Positive: Negative Skin: Positive: Negative Respiratory: Positive: Negative Cardiovascular: Positive: Negative Gastrointestinal: Positive: Negative Musculoskeletal: Positive: Arthralgia, Decreased ROM, Myalgia Physical Exam Triage Information Reviewed: Yes Appearance: Well-Appearing, No Pain Distress, Well-Nourished Vital Signs: Initial Vital Signs Temp 98.1 F 08/07/19 08:54 Pulse 79 10/19/18 08:54 Resp 18 10/19/18 08:54 BP 115/84 10/19/18 08:54 Pulse Ox 97 10/19/18 08:54 Vital Signs Reviewed: Yes Eyes: Positive: Conjunctiva Clear ENT: Positive: Hearing grossly normal Neck: Positive: Supple Respiratory: Positive: No respiratory distress, No accessory muscle use Cardiovascular: Positive: Pulses Normal Abdomen Description: Positive: Soft Musculoskeletal: Positive: No Edema, ROM Limited @ - BACK Neurological: Positive: Alert, Muscle Tone Normal Psychological: Positive: Age Appropriate Behavior Skin: Negative: Rashes Back Pain Course/Dx - Course Course Of Treatment: LIKELY MUSCULAR STRAIN. NO INDICATION FOR X-RAYS TODAY. CONCERN FOR NERVE IMPINGEMENTPOSSIBLY MERALGIA PARESTHETICA GIVEN TINGLY SENSATION IN LEFT LATERAL THIGH. WILL GIVE PREDNISONE TO HELP WITH INFLAMMATION. NAPROXEN NEEDED FOR DISCOMFORT AND FLEXERIL BEFORE BED. PHYSICAL THERAPY REFERRAL PROVIDED PER PATIENT REQUEST. ADVISED STRETCHING AND HEAT AND RANGE OF MOTION EXERCISES. FOLLOW-UP IF NEEDED. - Differential Dx/Diagnosis Provider Diagnosis: Low back strain Discharge - Sign-Out/Discharge Documenting (check all that apply): Patient Departure All imaging exams completed and their final reports reviewed: No Studies - Discharge Plan Condition: Stable Disposition: HOME Prescriptions: Cyclobenzaprine TAB* [Flexeril TAB*] 10 mg PO BID PRN #30 tab PRN Reason: Pain Naproxen [Naproxen 500 mg tab] 500 mg PO BID PRN #30 tablet PRN Reason: Pain predniSONE TAB* [Deltasone TAB*] 50 mg PO DAILY #5 tab Patient Education Materials: Low Back Strain (ED), Meralgia Paresthetica (ED) Forms: *Work Release Referrals: [facility] [Outside] Additional Instructions: YOUR SYMPTOMS SHOULD IMPROVE SIGNIFICANTLY OVER THE NEXT 1-2 WEEKS. IF YOU DO NOT IMPROVE EXPECTED FOLLOW-UP WITH YOUR PCP. YOU MAY BENEFIT FROM IMAGING AT THAT TIME. PHYSICAL THERAPY REFERRAL ALSO PROVIDED FOR YOU TO USE IF DESIRED. REST. NAPROXEN NEEDED FOR DISCOMFORT. TAKE MUSCLE RELAXER BEFORE BED. PREDNISONE MAY HELP WITH ANY INFLAMMATORY PROCESS. BE SURE TO GO THROUGH SLOW RANGE OF MOTION AND STRETCHING EXERCISES DAILY YOU ARE ABLE TO PREVENT STIFFENING UP AND MAKING THE DISCOMFORT WORSE. CALL THE NUMBER BELOW FOR ASSISTANCE IN ESTABLISHING WITH A PCP An additional resource available to assist in finding the appropriate physician for your health care needs is the [facility] ([facility]). You may contact them by calling [phone]. - Billing Disposition and Condition Condition: STABLE Disposition: Home
== END 2018-10-19 09:50 | disposition home or self-care (01) ==
LOC: UCEAST 08:42
DX: S39.012A Strain of muscle, fascia and tendon of lower back, initial encounter (principal); X50.0XXA Overexertion from strenuous movement or load, initial encounter; Y93.89 Activity, other specified; Y92.89 Other specified places as the place of occurrence of the external cause; Y99.0 Civilian activity done for income or pay; J45.909 Unspecified asthma, uncomplicated; F17.210 Nicotine dependence, cigarettes, uncomplicated; Z88.2 Allergy status to sulfonamides
CPT/HCPCS: 99212; G0463

== ENCOUNTER 2022-02-18 13:10 | Observation (INO) ==
[2022-02-18 14:56] LABS: Urine Appearance Clear; Urine Bilirubin Negative (Negative); Urine Blood Negative (Negative); Urine Color Yellow; Urine Glucose Negative (Negative); Urine Ketones Negative (Negative); Urine Nitrite Negative (Negative); Urine Protein Negative (Negative); Urine Specific Gravity 1.015 (1.002-1.030); Urine Urobilinogen Negative (Negative)
[2022-02-18 15:05] LABS: Urine Benzodiazepine Screen Presumptive Positive (None Detect); Urine Cannabinoids Screen None Detected (None Detect); Urine Opiates Screen None Detected (None Detect)
[2022-02-18] MEDS ORDERED: cefTRIAXone 1 gm/50 mL D5W 1 GM/50 ML BAG IV ONE (15:40)
[2022-02-18 15:47] LABS: ABS Eosinophils 0.1 10^3/ul (0-0.6); ABS Lymphocytes 1.6 10^3/ul (1.0-4.8); ABS Monocytes 0.8 10^3/ul (0-0.8); ABS Neutrophils 3.9 10^3/ul (1.5-7.7); Eosinophil % 2.3 %; Hematocrit 38 % (42-52); Hemoglobin 12.5 g/dL (14.0-18.0); Lymphocyte % 25.1 %; Mean Corpuscular HGB Conc 33 g/dL (31-36); Mean Corpuscular Hemoglobin 27 pg (27-31); Mean Corpuscular Volume 81 fL (80-94); Mean Platelet Volume 6.2 fL (7.4-10.4); Platelet Count 183 10^3/uL (150-450); Red Blood Count 4.66 10^6 /uL (4.18-5.48); Red Cell Distribution Width 16 % (10-15); White Blood Count 6.5 10^3/uL (3.5-10.8)
[2022-02-18 16:18] LABS: Albumin 2.4 g/dL (3.2-5.2); CO2 Carbon Dioxide 25 mmol/L (22-32); Chloride 110 mmol/L (101-111); Sodium 139 mmol/L (135-145)
[2022-02-18 16:24] LABS: ALT 63 U/L (7-52); Alkaline Phosphatase 41 U/L (35-149); Blood Urea Nitrogen 10 mg/dL (6-24); C Reactive Protein 48.38 mg/L (<8.01); Globulin 2.3 g/dL (2-4); Glucose 74 mg/dL (70-100); Total Protein 4.7 g/dL (6.4-8.9); eGFR CKD-EPI 160.5 (>60)
[2022-02-18 16:28] LABS: AST 107 U/L (13-39); Anion Gap 4 mmol/L (2-11); Potassium 3.5 mmol/L (3.5-5.0)
[2022-02-18 16:29] LABS: Calcium 6.1 mg/dL (8.6-10.3)
[2022-02-18] MEDS ORDERED: cefTRIAXone 2 GM ADDV.VIAL 2 GM in NS 0.9% 100 ml BAG 100 ML IV ONE (16:37)
[2022-02-18] MEDS ORDERED: Vancomycin 1,000 MG in NS 0.9% 250 ml 250 ML IVPB ONE (16:38)
[2022-02-18] MEDS ORDERED: cefTRIAXone 2 GM ADDV.VIAL ONE (16:42)
[2022-02-18] MEDS ORDERED: Vancomycin 1,000 MG BAG/ADDV ONE (17:15)
[2022-02-18] MEDS ORDERED: Morphine 4 MG/ML VIAL (1 ml) IV ONE (17:35)
[2022-02-18] MEDS ORDERED: Ondansetron 4 mg VIAL 2 MG/ML 2 ml VIAL IV PRN (19:34)
[2022-02-18] MEDS ORDERED: Vancomycin per Pharmacy 1 EA NOTE FOLLOW UP SCH (20:00)
[2022-02-18] MEDS ORDERED: Enoxaparin 40 MG/0.4 ML SYR SUBCUT SCH (21:00)
[2022-02-18 21:14] LABS: Alcohol, S < 13 mg/dL (<13)
[2022-02-18] MEDS: oxyCODONE/Acetamin 5/325 mg TAB PO PRN (21:52)
[2022-02-18] MEDS: NS 0.9% 1000 ml BAG 1,000 ML IV SCH (21:55)
[2022-02-19] MEDS ORDERED: Vancomycin 1,250 MG in NS 0.9% 250 ml 250 ML IVPB SCH
[2022-02-19 06:11] LABS: ABS Eosinophils 0.2 10^3/ul (0-0.6); ABS Lymphocytes 1.6 10^3/ul (1.0-4.8); ABS Monocytes 0.9 10^3/ul (0-0.8); ABS Neutrophils 4.2 10^3/ul (1.5-7.7); Eosinophil % 3.2 %; Hematocrit 37 % (42-52); Hemoglobin 12.6 g/dL (14.0-18.0); Lymphocyte % 23.8 %; Mean Corpuscular HGB Conc 34 g/dL (31-36); Mean Corpuscular Hemoglobin 27 pg (27-31); Mean Corpuscular Volume 80 fL (80-94); Mean Platelet Volume 6.1 fL (7.4-10.4); Nucleated Red Blood Cells % 0.1; Platelet Count 225 10^3/uL (150-450); Red Blood Count 4.61 10^6 /uL (4.18-5.48); Red Cell Distribution Width 16 % (10-15); White Blood Count 6.9 10^3/uL (3.5-10.8)
[2022-02-19 06:30] LABS: Calcium 8.6 mg/dL (8.6-10.3); Potassium 4.2 mmol/L (3.5-5.0); eGFR CKD-EPI 132.1 (>60)
[2022-02-19] MEDS: oxyCODONE/Acetamin 5/325 mg TAB PO PRN ×2 (07:57→15:23)
[2022-02-19] MEDS: NS 0.9% 1000 ml BAG 1,000 ML IV SCH (08:06)
[2022-02-19 13:47] LABS: C Reactive Protein 60.15 mg/L (<8.01)
[2022-02-19] MEDS ORDERED: Vancomycin Trough Check NOTE FOLLOW UP ONE (15:30)
[2022-02-19 17:09] VITALS: BP 142/74
== END 2022-02-19 19:00 | disposition home or self-care (01) ==
LOC: EDHOLD 13:10 → ED 13:10 → EDHOLD 20:48 → MEDTELE 21:11
PROVIDERS: ADMIT Internal Medicine; ATTEND Internal Medicine

== ENCOUNTER 2022-05-15 05:44 | Inpatient (IN) ==
[2022-05-15] MEDS ORDERED: Lactated Ringers 1000 ml BAG 1,000 ML IV ONE (06:31)
[2022-05-15] MEDS ORDERED: Cefepime 2 GM in Dextrose 2 GM/50 ML BAG IV ONE (06:35)
[2022-05-15 06:57] LABS: ABS Basophils 0.1 10^3/ul (0-0.2); ABS Eosinophils 0.1 10^3/ul (0-0.6); ABS Lymphocytes 2.2 10^3/ul (1.0-4.8); ABS Monocytes 1.3 10^3/ul (0-0.8); Eosinophil % 0.8 %; Hematocrit 34 % (42-52); Hemoglobin 11.4 g/dL (14.0-18.0); Mean Corpuscular HGB Conc 33 g/dL (31-36); Mean Corpuscular Hemoglobin 27 pg (27-31); Mean Corpuscular Volume 81 fL (80-94); Mean Platelet Volume 5.5 fL (7.4-10.4); Platelet Count 273 10^3/uL (150-450); Red Blood Count 4.23 10^6 /uL (4.18-5.48); Red Cell Distribution Width 15 % (10-15); White Blood Count 13.7 10^3/uL (3.5-10.8)
[2022-05-15 07:48] LABS: Albumin 3.5 g/dL (3.2-5.2); Albumin/Globulin Ratio 0.9 (1-3); C Reactive Protein 95.49 mg/L (<8.01); Calcium 8.5 mg/dL (8.6-10.3); Creatinine, Serum 0.64 mg/dL (0.67-1.17); Globulin 4.1 g/dL (2-4); Potassium 3.8 mmol/L (3.5-5.0); Total Bilirubin 0.6 mg/dL (0.2-1.0); Total Protein 7.6 g/dL (6.4-8.9); eGFR CKD-EPI 130.6 (>60)
[2022-05-15] MEDS ORDERED: Vancomycin 1,500 MG in NS 0.9% 250 ml 250 ML IVPB ONE (08:00)
[2022-05-15] MEDS ORDERED: Iohexol 350 (CONTRAST) 500 ML MDV IV ONE (08:57)
[2022-05-15] MEDS ORDERED: Ondansetron 4 mg VIAL 2 MG/ML 2 ml VIAL IV ONE (09:22)
[2022-05-15] MEDS ORDERED: Morphine 4 MG/ML VIAL (1 ml) IV ONE (11:15)
[2022-05-15] MEDS ORDERED: Ondansetron ODT 4 mg TAB 4 MG TAB PO PRN (12:38)
[2022-05-15] MEDS ORDERED: Lactulose 30 ml UDC PO PRN (12:38)
[2022-05-15] MEDS ORDERED: Magnesium Hydroxide LIQ 30 ML UDC PO PRN (12:38)
[2022-05-15] MEDS ORDERED: Ondansetron 4 mg VIAL 2 MG/ML 2 ml VIAL IV PRN (12:38)
[2022-05-15] MEDS ORDERED: Vancomycin per Pharmacy 1 EA NOTE FOLLOW UP SCH (13:00)
[2022-05-15] MEDS ORDERED: Lactated Ringers 1000 ml BAG 1,000 ML IV SCH (13:00)
[2022-05-15] MEDS: metroNIDAZOLE IV 500 MG/100ML 500 MG/100 ML BAG IVPB SCH (16:17)
[2022-05-15] MEDS ORDERED: Remdesivir 100 mg Vial 200 MG in NS 0.9% 250 ml 210 ML IV ONE (17:48)
[2022-05-15] MEDS ORDERED: Vancomycin 1,250 MG in NS 0.9% 250 ml 250 ML IVPB SCH (18:00)
[2022-05-15] MEDS: Nicotine PATCH 14 MG/24 HR PATCH TRANSDERM SCH (19:50)
[2022-05-15 20:04] LABS: Calcium 8.6 mg/dL (8.6-10.3); Creatinine, Serum 0.51 mg/dL (0.67-1.17); Potassium 4.3 mmol/L (3.5-5.0); eGFR CKD-EPI 139.9 (>60)
[2022-05-15] MEDS: Magnesium Hydroxide LIQ 30 ML UDC PO SCH (21:34)
[2022-05-15] MEDS: Cefepime 2 GM in Dextrose 2 GM/50 ML BAG IV SCH (23:46)
[2022-05-16] MEDS: metroNIDAZOLE IV 500 MG/100ML 500 MG/100 ML BAG IVPB SCH ×2 (03:14→15:25)
[2022-05-16 07:30] LABS: Hematocrit 32 % (42-52); Mean Platelet Volume 5.5 fL (7.4-10.4); Platelet Count 230 10^3/uL (150-450)
[2022-05-16] MEDS ORDERED: Metoclopramide 5 MG/ML VIAL (10 mg) IV SLOW PU ONE (08:01)
[2022-05-16] MEDS ORDERED: Famotidine IV 10 MG/ML 2 ml VIAL (20 mg) IV SLOW PU ONE (08:01)
[2022-05-16 08:02] LABS: Calcium 8.2 mg/dL (8.6-10.3); Creatinine, Serum 0.54 mg/dL (0.67-1.17); Potassium 4.6 mmol/L (3.5-5.0); eGFR CKD-EPI 137.5 (>60)
[2022-05-16] MEDS ORDERED: Vancomycin Trough Check NOTE FOLLOW UP ONE (09:30)
[2022-05-16] MEDS: Cefepime 2 GM in Dextrose 2 GM/50 ML BAG IV SCH ×2 (10:34→21:25)
[2022-05-16] MEDS ORDERED: fentaNYL 100 mcg/2 ml 50 MCG/ML VIAL ONE ×5 (11:03→14:37)
[2022-05-16] MEDS ORDERED: Lidocaine 2% PF 5 ML VIAL ONE (11:03)
[2022-05-16] MEDS ORDERED: Propofol 10 MG/ML 20 ML BTL ONE (11:03)
[2022-05-16] MEDS ORDERED: Bupivacaine 0.5% 50 ML MDV VIAL ONE (11:14)
[2022-05-16] MEDS ORDERED: oxyCODONE/Acetamin 5/325 mg TAB PO PRN (11:21)
[2022-05-16] MEDS ORDERED: HYDROcodone/ACETAMIN 5/325 mg TAB PO PRN (11:21)
[2022-05-16] MEDS ORDERED: Naloxone 0.4 mg VIAL 0.4 mg/ml 1 ml VIAL IV PRN (11:21)
[2022-05-16] MEDS ORDERED: ceFAZolin 2 GM PREMIX 2 GM/50 ML BAG ONE (12:29)
[2022-05-16] MEDS ORDERED: HYDROmorphone 0.5 MG/0.5 ML SYRINGE ONE ×3 (12:37→13:13)
[2022-05-16] MEDS: fentaNYL 100 mcg/2 ml 50 MCG/ML VIAL IV PRN ×4 (13:21→14:46)
[2022-05-16] MEDS ORDERED: HYDROmorphone 1 MG/1 ML SYRINGE ONE ×2 (13:42→14:02)
[2022-05-16] MEDS: HYDROmorphone 0.5 MG/0.5 ML SYRINGE IV SLOW PU PRN ×4 (13:45→14:18)
[2022-05-16] MEDS: Magnesium Hydroxide LIQ 30 ML UDC PO SCH ×2 (13:47→21:25)
[2022-05-16] MEDS: Nicotine PATCH 14 MG/24 HR PATCH TRANSDERM SCH (13:48)
[2022-05-16] MEDS: Vitamin THERAPEUTIC TAB PO SCH (13:48)
[2022-05-16 17:27] LABS: ABS Eosinophils 0.2 10^3/ul (0-0.6); ABS Lymphocytes 1.8 10^3/ul (1.0-4.8); ABS Monocytes 0.8 10^3/ul (0-0.8); ABS Neutrophils 4.2 10^3/ul (1.5-7.7); Eosinophil % 2.9 %; Hematocrit 34 % (42-52); Hemoglobin 11.5 g/dL (14.0-18.0); Lymphocyte % 25.9 %; Mean Corpuscular HGB Conc 34 g/dL (31-36); Mean Corpuscular Hemoglobin 28 pg (27-31); Mean Corpuscular Volume 81 fL (80-94); Mean Platelet Volume 5.6 fL (7.4-10.4); Platelet Count 262 10^3/uL (150-450); Red Blood Count 4.15 10^6 /uL (4.18-5.48); Red Cell Distribution Width 15 % (10-15)
[2022-05-16 17:36] LABS: Activated Partial Thrombo Time 36.3 seconds (26.0-38.0); INR 1.38 (0.88-1.18)
[2022-05-16 17:54] LABS: Creatinine, Serum 0.5 mg/dL (0.67-1.17); eGFR CKD-EPI 140.7 (>60)
[2022-05-16] MEDS ORDERED: Remdesivir 100 mg Vial 100 MG in NS 0.9% 250 ml 230 ML IV SCH (21:00)
[2022-05-16] MEDS: Heparin 5000 UNITS/ML 1 mL VIAL SUBCUT SCH (21:25)
[2022-05-16] MEDS: Morphine 4 MG/ML VIAL (1 ml) IV PRN (22:30)
[2022-05-17] MEDS: metroNIDAZOLE IV 500 MG/100ML 500 MG/100 ML BAG IVPB SCH ×2 (02:52→15:02)
[2022-05-17 09:52] LABS: Hematocrit 33 % (42-52); Hemoglobin 11.1 g/dL (14.0-18.0); Mean Platelet Volume 5.5 fL (7.4-10.4); Platelet Count 300 10^3/uL (150-450)
[2022-05-17] MEDS: Morphine 4 MG/ML VIAL (1 ml) IV PRN ×3 (10:05→22:29)
[2022-05-17] MEDS: Vitamin THERAPEUTIC TAB PO SCH (10:05)
[2022-05-17] MEDS: Magnesium Hydroxide LIQ 30 ML UDC PO SCH ×2 (10:06→23:36)
[2022-05-17] MEDS: Heparin 5000 UNITS/ML 1 mL VIAL SUBCUT SCH ×2 (10:06→22:22)
[2022-05-17] MEDS: Nicotine PATCH 14 MG/24 HR PATCH TRANSDERM SCH (10:06)
[2022-05-17] MEDS: Cefepime 2 GM in Dextrose 2 GM/50 ML BAG IV SCH ×2 (10:09→22:50)
[2022-05-17] MEDS ORDERED: Vancomycin 1,000 MG in NS 0.9% 250 ml 250 ML IVPB ONE (11:54)
[2022-05-17] MEDS ORDERED: Vancomycin per Pharmacy 1 EA NOTE FOLLOW UP SCH (12:00)
[2022-05-17] MEDS: Vancomycin 1,250 MG in NS 0.9% 250 ml 250 ML IVPB SCH (23:49)
[2022-05-18] MEDS: metroNIDAZOLE IV 500 MG/100ML 500 MG/100 ML BAG IVPB SCH ×2 (03:40→15:04)
[2022-05-18] MEDS: Vancomycin 1,250 MG in NS 0.9% 250 ml 250 ML IVPB SCH (04:54)
[2022-05-18] MEDS: Morphine 4 MG/ML VIAL (1 ml) IV PRN ×4 (04:55→21:50)
[2022-05-18 06:33] LABS: Hematocrit 33 % (42-52); Mean Platelet Volume 5.6 fL (7.4-10.4); Platelet Count 300 10^3/uL (150-450)
[2022-05-18] MEDS: Cefepime 2 GM in Dextrose 2 GM/50 ML BAG IV SCH (09:47)
[2022-05-18] MEDS: Vitamin THERAPEUTIC TAB PO SCH (09:50)
[2022-05-18] MEDS: Heparin 5000 UNITS/ML 1 mL VIAL SUBCUT SCH ×2 (09:50→21:49)
[2022-05-18] MEDS: Nicotine PATCH 14 MG/24 HR PATCH TRANSDERM SCH (11:08)
[2022-05-18] MEDS: Magnesium Hydroxide LIQ 30 ML UDC PO SCH ×2 (11:11→21:55)
[2022-05-18 13:06] LABS: HIV 4th Generation Nonreactive (Nonreactive)
[2022-05-18] MEDS: cefTRIAXone 2 gm/50 mL D5W 2 GM/50 ML BAG IV SCH (18:32)
[2022-05-19] MEDS: Nicotine GUM 2MG FRUIT FLAVOR PO PRN ×3 (00:13→20:39)
[2022-05-19] MEDS: Morphine 4 MG/ML VIAL (1 ml) IV PRN ×4 (03:04→18:02)
[2022-05-19] MEDS: metroNIDAZOLE IV 500 MG/100ML 500 MG/100 ML BAG IVPB SCH ×2 (03:04→14:31)
[2022-05-19] MEDS ORDERED: Vancomycin Trough Check NOTE FOLLOW UP ONE (04:30)
[2022-05-19 08:23] LABS: ABS Eosinophils 0.3 10^3/ul (0-0.6); ABS Lymphocytes 1.6 10^3/ul (1.0-4.8); ABS Monocytes 0.7 10^3/ul (0-0.8); ABS Neutrophils 5.8 10^3/ul (1.5-7.7); Hematocrit 34 % (42-52); Hemoglobin 11.5 g/dL (14.0-18.0); Lymphocyte % 18.6 %; Mean Corpuscular HGB Conc 34 g/dL (31-36); Mean Corpuscular Hemoglobin 27 pg (27-31); Mean Corpuscular Volume 80 fL (80-94); Mean Platelet Volume 5.4 fL (7.4-10.4); Platelet Count 307 10^3/uL (150-450); Red Blood Count 4.28 10^6 /uL (4.18-5.48); Red Cell Distribution Width 15 % (10-15); White Blood Count 8.4 10^3/uL (3.5-10.8)
[2022-05-19 08:50] LABS: Creatinine, Serum 0.54 mg/dL (0.67-1.17); eGFR CKD-EPI 137.5 (>60)
[2022-05-19] MEDS: Heparin 5000 UNITS/ML 1 mL VIAL SUBCUT SCH ×2 (09:46→20:40)
[2022-05-19] MEDS: Nicotine PATCH 14 MG/24 HR PATCH TRANSDERM SCH (09:47)
[2022-05-19] MEDS: Vitamin THERAPEUTIC TAB PO SCH (09:47)
[2022-05-19] MEDS: Magnesium Hydroxide LIQ 30 ML UDC PO SCH ×2 (09:47→20:41)
[2022-05-19] MEDS: cefTRIAXone 2 gm/50 mL D5W 2 GM/50 ML BAG IV SCH (18:02)
[2022-05-20] MEDS: metroNIDAZOLE IV 500 MG/100ML 500 MG/100 ML BAG IVPB SCH (02:48)
[2022-05-20] MEDS: Heparin 5000 UNITS/ML 1 mL VIAL SUBCUT SCH (09:05)
[2022-05-20] MEDS: Vitamin THERAPEUTIC TAB PO SCH (09:06)
[2022-05-20 09:15] LABS: Hematocrit 35 % (42-52); Hemoglobin 12.2 g/dL (14.0-18.0); Mean Platelet Volume 5.4 fL (7.4-10.4); Platelet Count 334 10^3/uL (150-450)
[2022-05-20] MEDS: Magnesium Hydroxide LIQ 30 ML UDC PO SCH (10:05)
[2022-05-20] MEDS: Nicotine PATCH 14 MG/24 HR PATCH TRANSDERM SCH (10:05)
[2022-05-20] MEDS: Morphine 4 MG/ML VIAL (1 ml) IV PRN (11:01)
[2022-05-20 11:08] VITALS: BP 124/81
== END 2022-05-20 15:30 | disposition left against medical advice (07) | DRG 383 ==
LOC: ED 05:44 → EDHOLD 05:44 → MED 17:57
PROVIDERS: ADMIT Orthopaedic Surgery; ATTEND Orthopaedic Surgery